=== PATIENT | female | born 1990 | race Caucasian/White ===

== ENCOUNTER → 2020-11-01 11:12 | Outpatient (BNVA) | payer OTHER, SELFPAY | PROVIDERS: PCP Internal Medicine; Visit Provider Advanced Practice Midwife ==

== ENCOUNTER 2021-01-25 09:31 | Outpatient (REF) | payer OTHER, SELFPAY ==
[2021-01-26 01:26] LABS: CT PCR NOT DETECTED (Not Detect.); NG PCR NOT DETECTED (Not Detect.)
== END 2021-01-25 09:32 | disposition home or self-care (01) ==
LOC: HO.LAB 09:31
PROVIDERS: Visit Provider Advanced Practice Midwife
DX: Z01.419 Encounter for gynecological examination (general) (routine) without abnormal findings (principal); Z20.2 Contact with and (suspected) exposure to infections with a predominantly sexual mode of transmission
CPT/HCPCS: 87491; 87591

== ENCOUNTER 2022-02-01 10:39 | Outpatient (REF) | payer OTHER, SELFPAY ==
[2022-02-01 16:01] LABS: CT PCR NOT DETECTED (Not Detect.); NG PCR NOT DETECTED (Not Detect.)
== END 2022-02-01 10:40 | disposition home or self-care (01) ==
LOC: HO.LNP 10:39
PROVIDERS: Visit Provider Advanced Practice Midwife
DX: Z11.3 Encounter for screening for infections with a predominantly sexual mode of transmission (principal); Z20.2 Contact with and (suspected) exposure to infections with a predominantly sexual mode of transmission
CPT/HCPCS: 87491; 87591

== ENCOUNTER 2022-04-27 21:09 | Emergency (ER) | payer OTHER, SELFPAY ==
[2022-04-27 21:29] VITALS: BP 149/87; PULSE 90; RESP 18; TEMP 36.9; O2SAT 100; BMI 43.4
[2022-04-27 22:16] LABS: IDNOW Serial# 08D9AD1C; Strep A Nucleic Acid Negative (Negative)
[2022-04-27 22:26] LABS: Influenza A PCR NEGATIVE (Negative); Influenza B PCR NEGATIVE (Negative); Resp Syncy Virus RNA Qual PCR NEGATIVE (Negative); SARS COV2 PCR INHOUSE NEGATIVE (Negative)
--- NOTE | 2022-04-27 22:51 | ED.GENADULT ---
HPI - General Adult General Chief complaint: General Medical Stated complaint: sore throat ,ear ache Time Seen by Provider: 04/27/22 22:45 Source: patient Mode of arrival: ambulatory Limitations: no limitations History of Present Illness HPI narrative: Patient comes to the emergency room complaining of 2-3 days of right-sided ear pain, sore throat and nasal congestion. Patient states that over the last day she has gradually been getting worse better, however patient complaining of worsening ear pain again and complaining of throat pain. Patient denies ear discharge, no fever chills, no headache, no neck pain, no chest pain or shortness of breath. Related Data Previous Rx's Medication Instructions Recorded amoxicillin 500 mg-potassium 1 tab PO BID #19 tabs 04/27/22 clavulanate 125 mg tablet (Augmentin) ibuprofen 600 mg tablet 600 mg PO TID PRN fever or pain 04/27/22 #20 tabs Allergies Allergy/AdvReac Type Severity Reaction Status Date / Time walnut Allergy Severe ANAPHYLAXIS Verified 02/01/22 09:58 walnuts Allergy Unknown throat Uncoded 02/01/22 09:58 tightness, elbow pain Review of Systems Review of Systems: Constitutional : No Weight loss, No Fever, No Chills, No Night Sweats, No Fatigue, No Malaise ENT/Mouth : Complaining of nasal congestion, mild sore throat, right-sided fullness and sharp ear pain Eyes: No Eye Pain, No Swelling, No Redness, No Foreign Body, No Discharge, No Vision Changes Cardiovascular : No Chest Pain, No SOB, No Dyspnea on Exertion, No Orthopnea, No Edema, No Palpitations Respiratory : No Cough, No Sputum, No Wheezing, No Smoke Exposure, No Dyspnea Gastrointestinal : No Nausea, No Vomiting, No Diarrhea, No Constipation, No abdominal Pain, No Hematochezia, No Melena Genitourinary : no irregular bleeding, No Dysuria, No Urinary Frequency, No Hematuria, No Urinary Incontinence, No Urgency, No Flank Pain, No Urinary Flow Changes, No Hesitancy Musculoskeletal : No joint pain, No Myalgias, No Joint Swelling Skin : No Skin Lesions, No rash Neuro : No Weakness, No Numbness, No Paresthesias, No Loss of Consciousness, No Dizziness, No Headache Psych : No Anxiety/Panic, No Depression, No SI/HI/AH/VH, No Social Issues, Heme/Lymph: No Bruising, No Bleeding,No Lymphadenopathy Endocrine : No Polyuria, No Polydipsia, No Temperature Intolerance [facility] Past Medical History Medical History Ectopic Surgical History H/O cardiac radiofrequency ablation Hx of section Hx of cholecystectomy Social History Social History Alcohol intake: current Alcohol intake frequency: holidays/special occasions only Patient Tobacco Use Status: Current everyday Tobacco user e-Cigarette/Vaping Use: Currently Using Advance Directives: No Current occupational status: employed 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 Oriented X3. No acute distress. Eyes: Pupils equal, round and reactive to light. ENT: Pharynx normal. No exudates, no vesicles or abscess is visualized in oropharynx. Right ear canal erythematous and swollen, erythematous tympanic membrane. Left ear within normal limits Neck: Normal inspection. Neck supple. No lymph nodes noted. No crepitus CVS: Normal heart rate and rhythm. Pulses normal. Normal S1 and S2 Respiratory: No respiratory distress. Breath sounds normal. No Wheezing. No rales Abdomen: Soft and nontender. No rigidity. No distention. Skin: Skin warm and dry. Normal skin color. Normal skin turgor. Extremities: No lower extremity edema. No Lacerations. No Rash Neuro: Oriented X 3. No motor deficit. No sensory deficit. Moving all extremities. No slurred speech. CN 2 through 12 grossly intact Psych: calm, cooperative, normal affect Course Course Course Narrative: I discussed with the patient that on physical exam she has otitis media on the right side. Strep test negative, COVID RSV tests pending. Patient was provided with ibuprofen, p.o. Decadron and viscous lidocaine for symptomatic relief. Also, patient was given the 1st dose of Augmentin. Patient tested negative for COVID and influenza and RSV Medications Administered Discontinued Medications Generic Name Dose Route Start Last Admin Trade Name Billq PRN Reason Stop Dose Admin Amoxicillin/Clavulanate Potassium 875 mg 04/27/22 22:49 04/27/22 23:14 Amoxicillin/Potassium Clav 875 Mg Tablet PO 04/27/22 22:50 875 mg ONCE ONE Administration Dexamethasone Sodium Phosphate 6 mg 04/27/22 22:56 04/27/22 23:14 Dexamethasone Sod Phosphate 4 Mg/Ml Vial IVPUSH 04/27/22 22:57 6 mg ONCE ONE Administration Ibuprofen 600 mg 04/27/22 22:49 04/27/22 23:14 Ibuprofen 600 Mg Tablet PO 04/27/22 22:50 600 mg ONCE ONE Administration Lidocaine HCl 15 ml 04/27/22 22:56 04/27/22 23:14 Lidocaine Hcl Viscous 2 % 15 Ml Solution MUCOUS MEM 04/27/22 22:57 15 ml ONCE ONE Administration Medical Decision Making Differential Diagnosis Differential Diagnoses: The differential diagnosis associated with the presentation includes (Strep pharyngitis, viral pharyngitis, COVID, influenza, otitis, otalgia) Lab Data MDM Lab Attestation statement: I reviewed the patient's lab results. Labs: Lab Results 04/27/22 04/27/22 Range/Units 21:37 21:37 Influenza Type A (PCR) NEGATIVE (Negative) Influenza Type B (PCR) NEGATIVE (Negative) RSV RNA Qual (PCR) NEGATIVE (Negative) SARS-CoV-2 RNA (RT-PCR) NEGATIVE (Negative) S. pyogenes GrpA [facility] Negative (Negative) Prescription Management I considered prescription management with: Pain Medication Patient will be treated with NSAID, no narcotics at this time. Discharge Plan Discharge Clinical Impression: Otitis media, Acute viral pharyngitis Patient Disposition: Home, Self-Care Instructions: Ear Infection (ED) Additional Instructions: Please follow-up with your primary care physician tomorrow. If you have any worsening or new symptoms, please return to the emergency room or call 911 Prescriptions: New amoxicillin-pot clavulanate [Augmentin] 500-125 mg tablet 1 tab PO BID Qty: 19 0RF ibuprofen 600 mg tablet 600 mg PO TID PRN (Reason: fever or pain) Qty: 20 0RF
[2022-04-27] MEDS: Lidocaine HCl Viscous 2 % 15 ML SOLUTION MUCOUS MEM (23:14)
[2022-04-27] MEDS: dexAMETHasone sod phosphate 4 MG/ML VIAL 6 MG IVPUSH (23:14)
[2022-04-27] MEDS: Amoxicillin/Potassium Clav 875 MG TABLET PO (23:14)
[2022-04-27] MEDS: Ibuprofen 600 MG TABLET PO (23:14)
== END 2022-04-27 23:32 | disposition home or self-care (01) ==
PROVIDERS: Emergency Provider Emergency Medicine
DX: H66.91 Otitis media, unspecified, right ear (principal); J02.9 Acute pharyngitis, unspecified; H92.01 Otalgia, right ear; F17.210 Nicotine dependence, cigarettes, uncomplicated; Z71.6 Tobacco abuse counseling; Z20.822 Contact with and (suspected) exposure to COVID-19
CPT/HCPCS: 0241U; 87651; 99283; J1100

== ENCOUNTER 2022-05-17 13:25 | Outpatient (REF) | payer OTHER, SELFPAY | END 2022-05-17 13:26 | disposition home or self-care (01) | LOC: HO.LNP 13:25 | PROVIDERS: Visit Provider Obstetrics & Gynecology | DX: N75.0 Cyst of Bartholin's gland (principal) | CPT/HCPCS: 56420; 87070; 87205 ==

== ENCOUNTER 2022-06-11 09:30 | Emergency (ER) | payer OTHER, SELFPAY ==
--- NOTE | 2022-06-11 09:35 | ECG_ITS ---
Test Reason : Chest Pain Blood Pressure : / mmHG Vent. Rate : 096 BPM Atrial Rate : 096 BPM P-R Int : 160 ms QRS Dur : 086 ms QT Int : 348 ms P-R-T Axes : 061 049 028 degrees QTc Int : 439 ms Sinus rhythm with marked sinus arrhythmia Otherwise normal ECG When compared with ECG of 29-NOV-2019 01:39, Vent. rate has increased BY 32 BPM Referred By: Steffi Butler Electronically Signed By:Loc Bo
[2022-06-11 09:42] VITALS: BP 154/74; PULSE 80; RESP 17; O2SAT 99; BMI 45.3
--- NOTE | 2022-06-11 10:02 | PC.NURSE ---
A+O X4, VSS, PT REPORTS SHARP PAIN FROM R ARM TO SHOULDER TO CHEST SINCE YESTERDAY. HX OF AVRT, ABLASION 2019, CHRONIC FLUTTERS. SHE DESCRIBES THE PAIN 7/10 DISCOMFORT POSSIBLY R/T NERVES AND ANXIETY . DENIES BLURRY VISION/SCHUSTER. NO CHANGE IN PO INTAKE/BOWEL PATTERN, LAST BM THIS MORNING.
--- NOTE | 2022-06-11 10:04 | ED_ITS ---
HPI - Chest Pain General Chief Complaint: Chest Pain Stated Complaint: Chest pain Time Seen by Provider: 06/11/22 09:35 Source: patient Mode of arrival: ambulatory History of Present Illness HPI narrative: 32-year-old female with presentation for chest discomfort but unable to further characterize and stating that she has been feeling a little anxious and has some ongoing concerns regarding her recent diagnosis of genital herpes for which she has a follow-up appoint with Dr. Cheng this week. Otherwise, she denies any fevers or chills but patient does report a history of SVT in the past for which she underwent ablation and has a follow-up appointment on Monday 06/19 for evaluation by her primary care provider for referral back to Cardiology. Related Data Previous Rx's Medication Instructions Recorded ibuprofen 600 mg tablet 600 mg PO TID PRN fever or pain 04/27/22 #20 tabs ondansetron HCl 4 mg tablet 8 mg PO Q8H PRN nausea and 06/11/22 vomiting 5 days #14 tabs oseltamivir 75 mg capsule (Tamiflu) 75 mg PO Q12H 5 days #10 caps 06/11/22 Allergies Allergy/AdvReac Type Severity Reaction Status Date / Time walnut Allergy Severe ANAPHYLAXIS Verified 05/17/22 13:34 walnuts Allergy Unknown throat Uncoded 05/17/22 13:34 tightness, elbow pain Review of Systems Review of Systems: Pertinent positives and negatives as stated in HPI [facility] Past Medical History Source: nursing notes reviewed Medical History Ectopic Surgical History H/O cardiac radiofrequency ablation Hx of section Hx of cholecystectomy Social History Social History Alcohol intake: current Alcohol intake frequency: holidays/special occasions only Patient Tobacco Use Status: Current everyday Tobacco user e-Cigarette/Vaping Use: Currently Using Advance Directives: No Advance Directives Information Provided: No Current occupational status: employed 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 GENERAL: Well developed, well nourished, appears anxious HEAD: Normocephalic/atraumatic EYES: PERRLA, EOMI EARS: Ext canals without abnormality, TMs non-bulging and non-erythematous NOSE: Nares patent bilateral OROPHARYNX: no oral lesions noted, posterior pharynx clear and non-erythematous without noted tonsillar enlargement/erythema/exudates NECK: Supple, no adenopathy LUNGS: Normal breath sounds. No adventitious sounds or accessory muscle use. SpO2<98> CARDIOVASCULAR: Regular rate and rhythm without noted murmurs, no JVD or lower extremity edema. ABDOMEN: Soft, non-tender, non-distended with bowel sounds. MUSCULOSKELETAL: No tenderness, deformities, or effusions noted on gross inspection. EXTREMITIES: No cyanosis, clubbing or edema. SKIN: Inspection of the skin reveals no rashes NEUROLOGIC: Alert and oriented x 4. Strength and sensation to light touch were grossly intact x 4. Medical Decision Making Medical Decision Making [facility] Narrative: 32-year-old female with suspected viral illness but also noted to have a heart rate fluctuating between 80s-90s and 140s-160s but also appears very anxious. On review of entire investigations my interpretation is that patient likely has chest discomfort as well as fluctuating heart rate secondary to underlying influenza positivity. Patient will receive Tylenol, ibuprofen, 25 mg of hydroxyzine. I did discuss this case with cardiology in regards to using a low dose beta sung as needed but as patient has been diagnosed with a viral infection will hold off on providing a prescription for that medication at this time and instead start her on the Tamiflu since she is within the window. Differential Diagnosis Differential Diagnoses: The differential diagnosis associated with the presentation includes Please see the discussion above Consult Healthcare Provider Management of the patient was discussed with: Control Director 1038: I discussed with retail representative who agrees with a low-dose beta-sung as long as patient does not have evidence of infection, anemia, abnormal TSH. 1159: I updated Cardiology that patient was in fact positive for influenza in so will hold off on the beta sung prescription at this time. Lab Data [facility] Lab Attestation statement: I reviewed the patient's lab results. Please see the discussion above 06/11/22 10:42 06/11/22 10:42 Labs: Lab Results 06/11/22 06/11/22 06/11/22 Range/Units 10:21 10:21 10:37 WBC (4.8-10.8) X10*3/uL RBC (4.20-5.50) X10*6/uL Hgb (12.0-16.0) g/dl Hct (37.0-47.0) % MCV (80.0-98.0) fL MCH (27.0-33.0) pg MCHC (31.0-35.0) g/dl RDW (11.0-16.0) % Plt Count (160-400) X10*3/uL MPV (9.4-12.3) fL Immature Gran % (Auto) (0.0-0.4) % Neut % (Auto) (45-73) % Lymph % (Auto) (20-40) % [place]duff[place] % (Auto) (2-11) % Eos % (Auto) (0-4) % Baso % (Auto) (0-2) % Lymph # (Auto) (1.2-4.9) X10*3/uL [place] # (Auto) (0.1-1.2) X10*3/uL Eos # (Auto) (0.0-0.4) X10*3/uL Baso # (Auto) (0.0-0.2) X10*3/uL Abs Immat Gran (auto) (0.00-0.03) X10*3/uL Absolute Neuts (auto) (2.0-8.3) x10*3/uL Absolute Nucleated RBC (0.0-0.012) X10*3/uL Nucleated RBC % (auto) (0.0-0.2) /100WBC Sodium (135-145) mmol/L Potassium (3.3-5.1) mmol/L Chloride (96-108) mmol/L Carbon Dioxide (22-29) mmol/L Anion Gap (12-20) BUN (9-16) mg/dL Creatinine (0.5-1.4) mg/dL Estim Creat Clear Calc Estimated GFR Random Glucose (60-115) mg/dL Calcium (8.4-10.2) mg/dL Total Bilirubin (0.0-1.0) mg/dL AST (5-31) U/L ALT (0-31) U/L Alkaline Phosphatase (39-117) U/L Total Protein (6.5-8.0) g/dL Albumin (3.5-5.0) g/dL TSH (0.32-4.0) uIU/mL Urine Color Yellow Urine Appearance Clear Urine pH 6.0 (5.0-9.0) Ur Specific [place] 1.015 (1.005-1.025) Urine Protein Negative (Neg-Trace) mg/dL Urine Glucose (UA) Negative (Negative) mg/dL Urine Ketones Trace (Negative) mg/dL Urine Blood Negative (Negative) Urine Nitrite Negative (Negative) Ur Leukocyte Esterase Negative (Negative) Urine Test (NEGATIVE) COVID-19 ([facility]) Negative (Negative) COVID-19 Clin Com See Note Influenza Type A ([facility]) Negative (Negative) Influenza Type B ([facility]) Positive A (Negative) Influenza A & B Note See Note 06/11/22 06/11/22 06/11/22 Range/Units 10:37 10:42 10:42 WBC 9.2 (4.8-10.8) X10*3/uL RBC 4.85 (4.20-5.50) X10*6/uL Hgb 14.3 (12.0-16.0) g/dl Hct 42.4 (37.0-47.0) % MCV 87.4 (80.0-98.0) fL MCH 29.5 (27.0-33.0) pg MCHC 33.7 (31.0-35.0) g/dl RDW 11.9 (11.0-16.0) % Plt Count 192 (160-400) X10*3/uL MPV 9.8 (9.4-12.3) fL Immature Gran % (Auto) 0.2 (0.0-0.4) % Neut % (Auto) 66.9 (45-73) % Lymph % (Auto) 21.7 (20-40) % [place]duff[place] % (Auto) 8.3 (2-11) % Eos % (Auto) 2.6 (0-4) % Baso % (Auto) 0.3 (0-2) % Lymph # (Auto) 2.0 (1.2-4.9) X10*3/uL [place] # (Auto) 0.8 (0.1-1.2) X10*3/uL Eos # (Auto) 0.2 (0.0-0.4) X10*3/uL Baso # (Auto) 0.0 (0.0-0.2) X10*3/uL Abs Immat Gran (auto) 0.02 (0.00-0.03) X10*3/uL Absolute Neuts (auto) 6.1 (2.0-8.3) x10*3/uL Absolute Nucleated RBC 0.000 (0.0-0.012) X10*3/uL Nucleated RBC % (auto) 0.0 (0.0-0.2) /100WBC Sodium 137 (135-145) mmol/L Potassium 4.1 (3.3-5.1) mmol/L Chloride 104 (96-108) mmol/L Carbon Dioxide 21 L (22-29) mmol/L Anion Gap 16 (12-20) BUN 13 (9-16) mg/dL Creatinine 0.77 (0.5-1.4) mg/dL Estim Creat Clear Calc 121.8 Estimated GFR > 60 Random Glucose 91 (60-115) mg/dL Calcium 9.5 (8.4-10.2) mg/dL Total Bilirubin 0.4 (0.0-1.0) mg/dL AST 22 (5-31) U/L ALT 15 (0-31) U/L Alkaline Phosphatase 56 (39-117) U/L Total Protein 7.9 (6.5-8.0) g/dL Albumin 4.8 (3.5-5.0) g/dL TSH 3.27 (0.32-4.0) uIU/mL Urine Color Urine Appearance Urine pH (5.0-9.0) Ur Specific [place] (1.005-1.025) Urine Protein (Neg-Trace) mg/dL Urine Glucose (UA) (Negative) mg/dL Urine Ketones (Negative) mg/dL Urine Blood (Negative) Urine Nitrite (Negative) Ur Leukocyte Esterase (Negative) Urine Test NEGATIVE (NEGATIVE) COVID-19 ([facility]) (Negative) COVID-19 Clin Com Influenza Type A ([facility]) (Negative) Influenza Type B ([facility]) (Negative) Influenza A & B Note Independent Interpretation I performed an independent interpretation of an: EKG Interpretation: Normal sinus rhythm, HR-96, no STEMI, MA/QRS/QTC is within normal limits. External Record Review External record reviewed: Outpatient record and Prior outpatient labs Critical Care Time Critical Care Time Critical Care Time: Yes Total Critical Care Time: 30 Attestation: I personally attest to this time spent taking care of the patient. Discharge Plan Discharge Clinical Impression: Viral syndrome, Influenza A Patient Disposition: Home, Self-Care Instructions: Influenza (ED), Viral Syndrome (ED) Additional Instructions: 1. Resume all home medications as prescribed. 2. Please complete the entire course of flu medication. 3. Please keep your appointment with Dr. Cheng as well as your primary care provider appointment on 06/19. Do not hesitate to return to the emergency room if you have any worsening of your symptoms. Prescriptions: New oseltamivir [Tamiflu] 75 mg capsule 75 mg PO Q12H 5 Days Qty: 10 0RF ondansetron HCl 4 mg tablet 8 mg PO Q8H PRN (Reason: nausea and vomiting) 5 Days Qty: 14 0RF No Action ibuprofen 600 mg tablet 600 mg PO TID PRN (Reason: fever or pain) Qty: 20 0RF Referrals: Kalyan Cheng MD [Physician] -
[2022-06-11 10:26] VITALS: BP 144/81; PULSE 89; RESP 23; O2SAT 98
[2022-06-11 10:47] LABS: MANUAL DIFF FLAG NO
[2022-06-11 10:48] LABS: Basophils Percent Auto 0.3 % (0-2); Eosinophils Absolute Auto 0.2 X10*3/uL (0.0-0.4); Eosinophils Percent Auto 2.6 % (0-4); Hematocrit 42.4 % (37.0-47.0); Hemoglobin 14.3 g/dl (12.0-16.0); Imm Gran Abs Auto 0.02 X10*3/uL (0.00-0.03); Imm Gran Pct Auto 0.2 % (0.0-0.4); Lymphocytes Percent Auto 21.7 % (20-40); Mean Corpuscular HGB Conc 33.7 g/dl (31.0-35.0); Mean Corpuscular Hemoglobin 29.5 pg (27.0-33.0); Mean Corpuscular Volume 87.4 fL (80.0-98.0); Mean Platelet Volume 9.8 fL (9.4-12.3); Monocytes Absolute Auto 0.8 X10*3/uL (0.1-1.2); Monocytes Percent Auto 8.3 % (2-11); Neutrophils Absolute Auto 6.1 x10*3/uL (2.0-8.3); Neutrophils Percent Auto 66.9 % (45-73); Platelet Count 192 X10*3/uL (160-400); Red Blood Count 4.85 X10*6/uL (4.20-5.50); Red Cell Distribution Width 11.9 % (11.0-16.0); White Blood Count 9.2 X10*3/uL (4.8-10.8)
[2022-06-11 10:50] LABS: Appearance Urine Clear; Color Urine Yellow; Glucose Urine UA Negative (Negative); Leukocyte Esterase Urine Negative (Negative); Nitrite Urine Negative (Negative); Specific Gravity - Urine 1.015 (1.005-1.025); Urine Blood Negative (Negative); Urine Ketones Trace mg/dL (Negative); Urine Protein Negative (Neg-Trace)
[2022-06-11 10:52] LABS: UPreg QC Valid YES; Urine Pregnancy NEGATIVE (NEGATIVE)
[2022-06-11 11:17] LABS: Alanine Aminotransferase 15 U/L (0-31); Albumin Level 4.8 g/dL (3.5-5.0); Alkaline Phosphatase 56 U/L (39-117); Anion Gap 16 (12-20); Aspartate Amino Transferase 22 U/L (5-31); Bilirubin Total 0.4 mg/dL (0.0-1.0); Blood Urea Nitrogen 13 mg/dL (9-16); Calcium 9.5 mg/dL (8.4-10.2); Carbon Dioxide 21 mmol/L (22-29); Chloride 104 mmol/L (96-108); Creatinine Clr Calc Pharmacy 121.8; Estimated Glomerular Filt Rate > 60; Glucose Random 91 mg/dL (60-115); Potassium 4.1 mmol/L (3.3-5.1); Sodium 137 mmol/L (135-145); Total Protein 7.9 g/dL (6.5-8.0)
[2022-06-11 11:24] LABS: IDNOW Serial# BCCEAD1C
[2022-06-11 11:25] LABS: COVID-19 Test Negative (Negative); IDNOW Serial# 16C4AD1C; Influenza A Negative (Negative); Influenza B2 Positive (Negative)
[2022-06-11 11:35] LABS: Thyroid Stimulating Hormone 3.27 uIU/mL (0.32-4.0)
[2022-06-11] MEDS: Acetaminophen 325 MG TABLET 975 MG PO (11:59)
[2022-06-11] MEDS: hydrOXYzine HCL 25 MG TABLET PO (11:59)
[2022-06-11] MEDS: Ibuprofen 400 MG TABLET PO (11:59)
[2022-06-11 12:00] VITALS: PULSE 84; RESP 13; O2SAT 99
== END 2022-06-11 12:24 | disposition home or self-care (01) ==
PROVIDERS: Emergency Provider Student in an Organized Health Care Education/Training Program
DX: J10.1 Influenza due to other identified influenza virus with other respiratory manifestations (principal); B34.9 Viral infection, unspecified; R07.89 Other chest pain; F17.210 Nicotine dependence, cigarettes, uncomplicated; Z71.6 Tobacco abuse counseling; Z20.822 Contact with and (suspected) exposure to COVID-19; Z20.828 Contact with and (suspected) exposure to other viral communicable diseases; Z79.899 Other long term (current) drug therapy
CPT/HCPCS: 36415; 80053; 81003; 81025; 84443; 85025; 87502; 87635; 93005; 99284

== ENCOUNTER 2022-06-13 08:35 | Outpatient (REF) | payer OTHER, SELFPAY | END 2022-06-13 08:36 | disposition home or self-care (01) | LOC: HO.LNP 08:35 | PROVIDERS: Visit Provider Advanced Practice Midwife | DX: N89.8 Other specified noninflammatory disorders of vagina (principal); L98.499 Non-pressure chronic ulcer of skin of other sites with unspecified severity; B00.9 Herpesviral infection, unspecified; Z20.828 Contact with and (suspected) exposure to other viral communicable diseases | CPT/HCPCS: 99212 ==

== ENCOUNTER 2022-06-13 09:04 | Outpatient (REF) | payer OTHER, SELFPAY ==
[2022-06-13 11:25] LABS: Syphilis Screen Nonreactive (Nonreactive)
[2022-06-13 13:42] LABS: CT PCR NOT DETECTED (Not Detect.); NG PCR NOT DETECTED (Not Detect.)
[2022-06-14 05:10] LABS: HBc Num1 0.08 S/CO (0.00-0.79); HIV AB/AG Nonreactive (Nonreactive); HIV Num 1 0.08 S/CO (0.00-0.99); Hepatitis B Core Antibody Nonreactive (Nonreactive); ~HepC Num1 0.14 S/CO (0.00-0.79); ~Hepatitis C Antibody Nonreactive (Nonreactive)
[2022-06-14 09:44] LABS: BV Int Neg Control Negative (Negative); BV Int Pos Control Positive (Positive)
== END 2022-06-13 09:05 | disposition home or self-care (01) ==
LOC: HO.LAB 09:04
PROVIDERS: Visit Provider Advanced Practice Midwife
DX: Z20.828 Contact with and (suspected) exposure to other viral communicable diseases (principal); Z20.2 Contact with and (suspected) exposure to infections with a predominantly sexual mode of transmission
CPT/HCPCS: 0353U; 86704; 86780; 86803; 87255; 87389; 87480; 87510; 87660

== ENCOUNTER → 2022-08-24 09:01 | Outpatient (BNVA) | payer OTHER, SELFPAY | PROVIDERS: Visit Provider Advanced Practice Midwife | DX: Z30.40 Encounter for surveillance of contraceptives, unspecified (principal) | CPT/HCPCS: 81025; 99212 ==

== ENCOUNTER 2022-09-29 09:46 | Emergency (ER) | payer OTHER, SELFPAY ==
--- NOTE | ~2022-09-29 | US_ITS ---
EXAMINATION: US PELVIS CLINICAL INFORMATION: Left lower quadrant pain, rule out ovarian cyst/torsion. COMPARISON: None available. TECHNIQUE: Ultrasound of the pelvis is performed using both transabdominal and transvaginal transducers along with Doppler. Transvaginal imaging is performed due to inadequate visualization transabdominally. FINDINGS: Uterus: The uterus is anteverted and mildly retroflexed and measures 8.3 x 4.0 x 4.9 cm. Small to mural fibroid on the left body measures 1.0 x 0.9 x 0.8 cm. The cervix is closed without abnormality measuring up to 3.3 cm. Mild free fluid in the cul-de-sac. The double wall endometrial thickness is 0.6 cm. Right ovary suboptimally visualized. Left ovary measures 3.8 x 2.6 x 2.9 cm. Volume 14.8 mL. An anechoic follicle measures up to 2.5 cm. Color Doppler showed no abnormal vascular flow. Urinary bladder mildly distended without focal abnormality. US/US pelvic and transvaginal IMPRESSION: 1. Left ovary is within normal limits without significant abnormality. 2. Small uterine fibroid without other significant abnormality. 3. Mild free fluid in the cul-de-sac is likely physiologic.
--- NOTE | ~2022-09-29 | US_ITS ---
EXAMINATION: US PELVIS CLINICAL INFORMATION: Left lower quadrant pain, rule out ovarian cyst/torsion. COMPARISON: None available. TECHNIQUE: Ultrasound of the pelvis is performed using both transabdominal and transvaginal transducers along with Doppler. Transvaginal imaging is performed due to inadequate visualization transabdominally. FINDINGS: Uterus: The uterus is anteverted and mildly retroflexed and measures 8.3 x 4.0 x 4.9 cm. Small to mural fibroid on the left body measures 1.0 x 0.9 x 0.8 cm. The cervix is closed without abnormality measuring up to 3.3 cm. Mild free fluid in the cul-de-sac. The double wall endometrial thickness is 0.6 cm. Right ovary suboptimally visualized. Left ovary measures 3.8 x 2.6 x 2.9 cm. Volume 14.8 mL. An anechoic follicle measures up to 2.5 cm. Color Doppler showed no abnormal vascular flow. Urinary bladder mildly distended without focal abnormality. US/US pelvic ovarian doppler IMPRESSION: 1. Left ovary is within normal limits without significant abnormality. 2. Small uterine fibroid without other significant abnormality. 3. Mild free fluid in the cul-de-sac is likely physiologic.
--- NOTE | ~2022-09-29 | US_ITS ---
EXAMINATION: US RENAL LEFT CLINICAL INFORMATION: Left flank pain, rule out hydronephrosis. COMPARISON: CT scan of the abdomen and pelvis dated 05/17/2013. TECHNIQUE: Linear transducer grayscale and color Doppler examination of the left kidney was performed. FINDINGS: LEFT KIDNEY: 11.2 x 5.7 x 5.3 cm. No nephrolithiasis or hydronephrosis. Color Doppler showed no abnormal vascular flow. US/US renal LT IMPRESSION: Unremarkable left kidney. No hydronephrosis.
[2022-09-29 09:50] VITALS: BP 155/85; PULSE 88; RESP 18; TEMP 36.6; O2SAT 98; BMI 45.3
--- NOTE | 2022-09-29 09:58 | ED.FEMALEGU ---
HPI - Female Genitourinary General Chief complaint: Urogenital-Female Stated complaint: L Lower Side Pain Time Seen by Provider: 09/29/22 09:57 Source: patient Mode of arrival: ambulatory Limitations: no limitations History of Present Illness HPI Narrative: 32-year-old female who presents emergency department for evaluation of left lower quadrant and left flank the. Patient states that the pain started on Sunday, 09/27/2022-2 days prior to evaluation. States the pain came on gradually and has been constant since onset. She describes the pain is a moderate, a cramping, dull pain similar to her menstrual cramps. She denied fever, chills, nausea, vomiting, diarrhea. She denied frequency, urgency or dysuria. She states that she did notice a unusual odor to her urine. She denied vaginal discharge. The patient does take control pills. She states she did have a home test which was positive but then negative last week. She states she did have an ectopic in the past and at that time she did have an IUD. Related Data Previous Rx's Medication Instructions Recorded acyclovir 5 % topical ointment 1 appl topical 6XD PRN prn 7 days 06/13/22 (Zovirax) #30 grams valacyclovir 1 gram tablet 1,000 mg PO BID 10 days #20 tabs 06/13/22 (Valtrex) desogestrel 0.15 mg-ethinyl 1 tab PO DAILY #28 tabs 08/24/22 estradiol 0.03 mg tablet (Apri) Allergies Allergy/AdvReac Type Severity Reaction Status Date / Time walnut Allergy Severe ANAPHYLAXIS Verified 09/29/22 09:49 walnuts Allergy Unknown throat Uncoded 06/13/22 08:45 tightness, elbow pain Review of Systems Review of Systems: Yes all other systems are reviewed and are negative [facility] Past Medical History [facility] Narrative: Past medical history: SVT with ablation, ectopic . Past surgical history: Cholecystectomy, , cardiac ablation. Social history: She denies tobacco use. She occasionally drinks alcohol. She occasionally smokes marijuana. 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 Sexual orientation: Straight/Heterosexual Gender identity: Female Physical Exam Vital Signs: Vital Signs: Last Vital Signs Temp 98 F 09/29/22 09:50 Pulse 79 09/29/22 12:05 Resp 18 09/29/22 12:05 BP 129/77 09/29/22 12:05 Pulse Ox 97 09/29/22 12:05 O2 Del Method Room Air 09/29/22 12:05 BMI result Body Mass Index 45.3 Const: Other: Awake, alert, female patient, very pleasant cooperative, does not appear to be in distress, answers all questions appropriately , elevated BMI 45.3 HEENT: Head: Yes normal to inspection, Yes normocephalic and Yes atraumatic Ears: external ears normal General nose exam: Normal external nose present Face and sinus: Yes normal facial exam Mouth: Normal oral and palatal mucosa present Throat: Yes posterior oropharynx normal Eyes: General: appearance normal, both eyes and all related structures Pupils: Equal, round and reactive pupils present Neck: Neck: Yes normal visual inspection, Yes no lymphadenopathy, Yes trachea midline and Yes supple Chest: Chest palpation & inspection: normal inspection of the chest and normal palpation of entire chest wall Resp: Effort & Inspection: normal respiratory effort and able to speak in complete sentences Auscultation: clear to auscultation bilaterally Cardio: Rate: regular rate Rhythm: regular rhythm Heart sounds: S1 normal heart sound present, S2 normal heart sound present and no murmurs GI: Inspection: Yes normal to inspection Palpation (GI): Soft to palpation, Tenderness to palpation present (GI) in the LLQ (Mild) and no guarding Auscultation: normal bowel sounds : General: Yes no CVA tenderness Back/Spine/Pelvis: Back: no CVA tenderness Skin: General skin exam: no rashes or lesions noted Neuro: Cranial nerves: Yes CN's II-XII intact bilaterally and Yes Equal, round and reactive pupils present Cognition (Neuro): normal cognition Motor exam (neuro): 5/5 motor strength present throughout Extrem: General: Yes normal to inspection Psych: Appearance: grossly normal Speech and movement: Normal speech and movement present Affect: normal affect Thought content: Normal thought content present Medical Decision Making Medical Decision Making [facility] Narrative: 32-year-old female who presents emergency department for evaluation of 2 days of left lower quadrant/pelvic and left flank cramping pain which came on gradually but has been constant since onset. Patient states she did have a positive home test last week but then repeated it and it was negative. She does have a history of ectopic and is taking control pills. Vital signs revealed an elevated blood pressure of 155/85. Physical examination did reveal mild left lower quadrant/pelvic tenderness. I did order laboratory evaluation includes CBC, CMP, lipase, quantitative beta-hCG, urinalysis. 1114: My interpretation of patient's laboratory evaluation is as follows: Anemia H&H of 12.2 and 36.2-chronic, normal MCV. CMP normal. Lipase normal. Quantitative beta-hCG below detectable limits. Urinalysis was negative. Given the unremarkable laboratory evaluation, I am still concerned that the patient may have ovarian cyst, torsion or kidney stone therefore I order an left renal ultrasound and left pelvic ultrasound, transvaginal ultrasound and duplex ultrasound. 1300: The patient's ultrasound of her left kidney and pelvic duplex ultrasound were normal, there was no ovarian cyst, ovarian torsion or hydronephrosis. At this time I do not have a clear etiology for the patient's pain I did discuss this with her. She was advised to take ibuprofen and Tylenol for pain. I did advisor she develops a rash then she should be evaluated for shingles. Patient was given printed and verbal instructions and discharged home. Differential Diagnosis Differential diagnosis includes was not limited to urinary tract infection, pyelonephritis, ectopic , ovarian cyst Admission/Observation Consideration of admission/observation: Escalation of care including admission/observation considered Lab Data [facility] Lab Attestation statement: I reviewed the patient's lab results. 09/29/22 10:29 09/29/22 10:29 Labs: Lab Results 09/29/22 09/29/22 09/29/22 Range/Units 10:25 10:29 10:29 WBC 6.3 (4.8-10.8) X10*3/uL RBC 4.08 L (4.20-5.50) X10*6/uL Hgb 12.2 (12.0-16.0) g/dl Hct 36.2 L (37.0-47.0) % MCV 88.7 (80.0-98.0) fL MCH 29.9 (27.0-33.0) pg MCHC 33.7 (31.0-35.0) g/dl RDW 11.6 (11.0-16.0) % Plt Count 202 (160-400) X10*3/uL MPV 9.7 (9.4-12.3) fL Immature Gran % (Auto) 0.3 (0.0-0.4) % Neut % (Auto) 66.0 (45-73) % Lymph % (Auto) 24.4 (20-40) % Ector % (Auto) 6.4 (2-11) % Eos % (Auto) 2.4 (0-4) % Baso % (Auto) 0.5 (0-2) % Lymph # (Auto) 1.5 (1.2-4.9) X10*3/uL Ector # (Auto) 0.4 (0.1-1.2) X10*3/uL Eos # (Auto) 0.2 (0.0-0.4) X10*3/uL Baso # (Auto) 0.0 (0.0-0.2) X10*3/uL Abs Immat Gran (auto) 0.02 (0.00-0.03) X10*3/uL Absolute Neuts (auto) 4.1 (2.0-8.3) x10*3/uL Absolute Nucleated RBC 0.000 (0.0-0.012) X10*3/uL Nucleated RBC % (auto) 0.0 (0.0-0.2) /100WBC Sodium 140 (135-145) mmol/L Potassium 4.5 (3.3-5.1) mmol/L Chloride 109 H (96-108) mmol/L Carbon Dioxide 25 (22-29) mmol/L Anion Gap 11 L (12-20) BUN 10 (9-16) mg/dL Creatinine 0.81 (0.5-1.4) mg/dL Estim Creat Clear Calc 115.8 Estimated GFR > 60 Random Glucose 103 (60-115) mg/dL Calcium 9.0 (8.4-10.2) mg/dL Total Bilirubin 0.3 (0.0-1.0) mg/dL AST 12 (5-31) U/L ALT 8 (0-31) U/L Alkaline Phosphatase 34 L (39-117) U/L Total Protein 6.4 L (6.5-8.0) g/dL Albumin 3.8 (3.5-5.0) g/dL Lipase 28 (8-78) U/L Beta HCG, Quant < 2 mIU/mL Urine Color Yellow Urine Appearance Clear Urine pH 7.0 (5.0-9.0) Ur Specific [place] 1.020 (1.005-1.025) Urine Protein Negative (Neg-Trace) mg/dL Urine Glucose (UA) Negative (Negative) mg/dL Urine Ketones Negative (Negative) mg/dL Urine Blood Negative (Negative) Urine Nitrite Negative (Negative) Ur Leukocyte Esterase Negative (Negative) Radiology Impression Discussion of test interpretation with radiology: I have reviewed the radiologist's reading. Radiologist Impression: US renal LT IMPRESSION: Unremarkable left kidney. No hydronephrosis. Dictated By:Ricci Lindo MD US pelvic and transvaginal IMPRESSION: 1. Left ovary is within normal limits without significant abnormality. 2. Small uterine fibroid without other significant abnormality. 3. Mild free fluid in the cul-de-sac is likely physiologic. Dictated By:Ricci Lindo MD Discharge Plan Discharge Clinical Impression: Left flank pain, Abdominal pain Patient Disposition: Home, Self-Care Additional Instructions: Your blood work was normal. Your urine test was unremarkable. Your blood test was negative. The ultrasound of your kidney was normal. The ultrasound your ovaries revealed normal blood flow with no evidence of twisting/torsion and no ovarian cyst. At this time I do not have a clear etiology for your pain. If you developed a rash on the left side of your body in the area of your pain then you should be re-evaluated for shingles and this sooner that you start anti shingle medicines the better. Take ibuprofen 200 mg pills, 32 pills every 6 hours as needed for pain. Take Tylenol (acetaminophen) 500 mg pills, 2 pills every 6 hours as needed for pain. Follow-up with your doctor in 2 days. Please return to the emergency department if your symptoms get worse or if you develop any symptoms that are concerning to you. Prescriptions: No Action valacyclovir [Valtrex] 1 gram tablet 1,000 mg PO BID 10 Days Qty: 20 0RF acyclovir [Zovirax] 5 % ointment 1 appl topical 6XD PRN (Reason: prn) 7 Days Qty: 30 2RF desogestrel-ethinyl estradiol [Apri] 0.15-0.03 mg tablet 1 tab PO DAILY Qty: 28 5RF
[2022-09-29 10:34] LABS: MANUAL DIFF FLAG NO
[2022-09-29 10:36] LABS: Basophils Percent Auto 0.5 % (0-2); Eosinophils Absolute Auto 0.2 X10*3/uL (0.0-0.4); Eosinophils Percent Auto 2.4 % (0-4); Hematocrit 36.2 % (37.0-47.0); Hemoglobin 12.2 g/dl (12.0-16.0); Imm Gran Abs Auto 0.02 X10*3/uL (0.00-0.03); Imm Gran Pct Auto 0.3 % (0.0-0.4); Lymphocytes Absolute Auto 1.5 X10*3/uL (1.2-4.9); Lymphocytes Percent Auto 24.4 % (20-40); Mean Corpuscular HGB Conc 33.7 g/dl (31.0-35.0); Mean Corpuscular Hemoglobin 29.9 pg (27.0-33.0); Mean Corpuscular Volume 88.7 fL (80.0-98.0); Mean Platelet Volume 9.7 fL (9.4-12.3); Monocytes Absolute Auto 0.4 X10*3/uL (0.1-1.2); Monocytes Percent Auto 6.4 % (2-11); Neutrophils Absolute Auto 4.1 x10*3/uL (2.0-8.3); Platelet Count 202 X10*3/uL (160-400); Red Blood Count 4.08 X10*6/uL (4.20-5.50); Red Cell Distribution Width 11.6 % (11.0-16.0); White Blood Count 6.3 X10*3/uL (4.8-10.8)
[2022-09-29 10:37] LABS: Appearance Urine Clear; Color Urine Yellow; Glucose Urine UA Negative (Negative); Leukocyte Esterase Urine Negative (Negative); Nitrite Urine Negative (Negative); Urine Blood Negative (Negative); Urine Ketones Negative (Negative); Urine Protein Negative (Neg-Trace)
[2022-09-29 11:00] LABS: Alanine Aminotransferase 8 U/L (0-31); Albumin Level 3.8 g/dL (3.5-5.0); Alkaline Phosphatase 34 U/L (39-117); Anion Gap 11 (12-20); Aspartate Amino Transferase 12 U/L (5-31); Bilirubin Total 0.3 mg/dL (0.0-1.0); Blood Urea Nitrogen 10 mg/dL (9-16); Carbon Dioxide 25 mmol/L (22-29); Chloride 109 mmol/L (96-108); Creatinine Clr Calc Pharmacy 115.8; Estimated Glomerular Filt Rate > 60; Glucose Random 103 mg/dL (60-115); HCG Quantitative < 2 mIU/mL; Lipase 28 U/L (8-78); Potassium 4.5 mmol/L (3.3-5.1); Sodium 140 mmol/L (135-145); Total Protein 6.4 g/dL (6.5-8.0)
--- NOTE | 2022-09-29 11:28 | PC.NURSE ---
pt off unit to go to U/[facility]
[2022-09-29 12:05] VITALS: BP 129/77; PULSE 79; RESP 18; O2SAT 97
== END 2022-09-29 16:41 | disposition home or self-care (01) ==
PROVIDERS: Emergency Provider Emergency Medicine Emergency Medical Services
DX: R10.32 Left lower quadrant pain (principal); R10.2 Pelvic and perineal pain; F17.210 Nicotine dependence, cigarettes, uncomplicated; Z71.6 Tobacco abuse counseling; Z79.899 Other long term (current) drug therapy
CPT/HCPCS: 36415; 76775; 76830; 76856; 80053; 81003; 83690; 84702; 85025; 93975; 99284

== ENCOUNTER 2023-07-18 12:44 | Outpatient (REF) | payer OTHER, SELFPAY ==
[2023-07-18 17:21] LABS: CT PCR NOT DETECTED (Not Detect.); NG PCR NOT DETECTED (Not Detect.)
[2023-07-25 12:49] LABS: HPV mRNA E6/E7 rflx Not Detected (Not Detected)
== END 2023-07-18 12:45 | disposition home or self-care (01) ==
LOC: HO.LNP 12:44
PROVIDERS: Visit Provider Advanced Practice Midwife
DX: Z01.419 Encounter for gynecological examination (general) (routine) without abnormal findings (principal); Z20.2 Contact with and (suspected) exposure to infections with a predominantly sexual mode of transmission
CPT/HCPCS: 0353U; 87624; 88142; 99395

== ENCOUNTER 2023-07-18 12:44 | Outpatient (AMB) | payer OTHER, SELFPAY ==
--- NOTE | 2023-07-18 12:47 | MHC.OFFVIS ---
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 Doing well with no concerns. Interested in a ParaGard, Hx. of ectopic with the device. Not eating healthy, no exercise. Regular monthly menses. Currently is sexually active. She denies vaginal itching and irritation. STI screening offered; she accepts. Denies family history of breast, ovarian or colon cancer. Last pap smear 2019, negative. 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 Sexual orientation: Straight/Heterosexual Gender identity: Female Female Reproductive History Menstrual Age of Menarche: 13 Duration of menses: 3-5 days Date of last menstrual period: 07/12/23 control method: pills Total pregnancies: 2 Full term: 1 Number of Living Children: 1 Ectopics: 1 Date of last pap smear: 02/04/20 (neg) Review of Systems Const All systems reviewed & are unremarkable except as noted in HPI and below Reports as per HPI Eyes Reports no additional complaints ENT Reports no additional complaints Card Reports no additional complaints Resp Reports no additional complaints GI Reports as per HPI and Reports no additional complaints Reports as per HPI Musc Reports no additional complaints Skin/Breast Reports as per HPI Neuro Reports no additional complaints Psych Reports no additional complaints Endo Reports no additional complaints Spencer/Lymph Reports no additional complaints Aller/Immun Reports no additional complaints Physical Exam Vital Signs: Last Vital Signs BP 120/80 07/18/23 12:52 BMI result Body Mass Index 49.7 Const General: cooperative, healthy appearing, no acute distress, well developed and alert Orientation/consciousness: patient oriented x3 HEENT Head: Yes normal to inspection Eyes General: appearance normal, both eyes and all related structures Neck Neck: Yes normal visual inspection Thyroid: Thyroid normal Chest Chest palpation & inspection: normal inspection of the chest and other (no puckering, dimpling, peau de orange, retraction, discharge, masses) Breast/axilla inspection: normal inspection of the breasts Breast/axilla palpation: normal palpation of the breasts Resp Effort & Inspection: normal respiratory effort GI Inspection: Yes normal to inspection Palpation (GI): Soft to palpation Rectal Exam - Female: deferred General: Yes bladder normal to palpation External Female Exam: normal external appearance and normal appearance of the urethra Speculum Exam - Vagina: normal appearance of the vagina, normal palpation and normal vaginal discharge Speculum Exam - Cervix: normal appearance of the cervix and normal palpation Bimanual exam- vagina & uterus: normal bimanual exam, normal palpation, uterine size normal, bladder normal to palpation, normal palpation and non-tender Bimanual Exam- Adnexa, other: no masses Skin General skin exam: no rashes or lesions noted Rashes: no rashes Neuro General: patient oriented x3 Cognition (Neuro): normal cognition Extrem General: Yes normal to inspection Psych Attitude: cooperative Thought process: Normal thought process present Assessment & Plan Assessment & Plan (1) Encounter for well woman exam with routine gynecological exam: Code(s): Z01.419 - Encounter for gynecological examination (general) (routine) without abnormal findings Plan Discussed: Current recommendations for pap smears per ASCCP guidelines. Breast awareness and periodic breast exams. Maintain a healthy lifestyle including a well balanced diet and routine exercise. Use condoms for STI and prevention. Discussed BC options: various IUD types, booklets given. Call when decided her choice. If planning a IUD, call in the firt 5d of menses. Use of OTC meds pre-procedure with food/fluids. Patient verbalizes understanding and agrees to the plan of care. She was given opportunity to ask questions and all questions were answered to the best of my ability. RTO in one year for annual community administrator examination. This note is constructed using voice recognition software. While every effort has been made to ensure accuracy, surveyor hydrographic errors may have been included. Orders: Orders Pap Smear Today Z01.419 - Encounter for gynecological examination (general) (routine) without abnormal findings CT NG by PCR Today Z20.2 - Contact with and (suspected) exposure to infections with a predominantly sexual mode of transmission Coding Level of Care Code Est Pt Prev Care 18-39y(99888) Diagnoses Encounter for well woman exam with routine gynecological exam Z01.419
[2023-07-18 12:52] VITALS: BP 120/80; BMI 49.7
== END 2023-07-18 13:41 | disposition home or self-care (01) ==
LOC: HO.HWS 12:45
PROVIDERS: Visit Provider Advanced Practice Midwife
DX: Z01.419 Encounter for gynecological examination (general) (routine) without abnormal findings (principal)
CPT/HCPCS: 99395

== ENCOUNTER 2023-08-13 14:01 | Emergency (ER) | payer OTHER, SELFPAY ==
--- NOTE | ~2023-08-13 | XR_ITS ---
EXAMINATION: XR FINGER, LEFT CLINICAL INFORMATION: Lingular spring shoulder on the thumb. Pain. COMPARISON: None available. TECHNIQUE: 3 views of the left thumb.. FINDINGS: The bones and soft tissues are normal. No fracture. Alignment is anatomic. Joint spaces are maintained. XR/XR finger LT min 2V IMPRESSION: Unremarkable first digit. No visible acute fracture or dislocation seen.
[2023-08-13 14:10] VITALS: BP 140/88; PULSE 105; O2SAT 98
[2023-08-13 14:21] VITALS: BP 152/92; PULSE 88; RESP 20; TEMP 36.6; O2SAT 100; BMI 45.3
--- NOTE | 2023-08-13 14:21 | ED_ITS ---
HPI - General Adult General Chief complaint: Skin/Abscess/Foreign Body Stated complaint: left thumb inj Time Seen by Provider: 08/13/23 14:53 Source: patient, family (patient's ) and EMS Mode of arrival: EMS Limitations: no limitations History of Present Illness HPI narrative: Patient is a 33 year old assigned female at with no reported medical history presenting to the emergency department today with a left thumb injury. Patient states that she was cleaning her oven when the hinges of the oven door snapped and caught her left thumb. Patient states that the hinge went through her left thumb and required the fire department to come release her. Patient denies any dizziness, lightheadedness, abdominal pain, nausea, vomiting, fever, chills, blurry vision, double vision, loss of vision, chest pain, difficulty breathing, shortness of breath, back pain, night sweats, pain with urination, increased urinary frequency, increased urinary urgency, blood in her urine or stool, syncope or a near syncopal episode, bowel incontinence, bladder incontinence, bowel retention, bladder retention, or any other complaints at this time. Onset (ago): minute(s) Location: left (thumb) Severity: mild Severity scale (1-10): 4 Quality: aching Pain Consistency: constant Relieving factors: none Exacerbating factors: none Associated symptoms: denies other symptoms Treatments prior to arrival: none Related Data Previous Rx's Medication Instructions Recorded acyclovir 5 % topical ointment 1 appl topical 6XD PRN prn 7 days 06/13/22 (Zovirax) #30 grams valacyclovir 1 gram tablet 1,000 mg PO BID 10 days #20 tabs 06/13/22 (Valtrex) desogestrel 0.15 mg-ethinyl 1 tab PO DAILY #84 tabs 04/03/23 estradiol 0.03 mg tablet (Apri) cephalexin 500 mg capsule 500 mg PO Q6H 7 days #28 caps 08/13/23 Allergies Allergy/AdvReac Type Severity Reaction Status Date / Time walnut Allergy Severe ANAPHYLAXIS Verified 07/18/23 12:52 walnuts Allergy Unknown throat Uncoded 06/13/22 08:45 tightness, elbow pain Review of Systems 2 Constitutional: Constitutional: Reports no additional constitutional complaints, Denies chills, Denies fever(s) and Denies night sweats Eyes: Eyes: Reports no additional eye complaints, Denies blurry vision, Denies change in vision, Denies diplopia, Denies eye discharge, Denies loss of vision and Denies eye pain ENT: Denies dizziness Cardiovascular: Cardiovascular: Reports no additional cardiovascular complaints, Denies chest pain, Denies lightheadedness, Denies Loss of Consciousness and Denies dyspnea Respiratory: Respiratory: Reports no additional respiratory complaints and Denies dyspnea Gastrointestinal: Gastrointestinal: Reports no additional gastrointestinal complaints, Denies abdominal pain, Denies melena, Denies hematochezia, Denies change in bowel habits and Denies change in stool character Genitourinary: Genitourinary: Denies hematuria, Denies urinary frequency, Denies dysuria, Denies urinary incontinence, Denies urinary hesitancy and Denies urinary urgency Musculoskeletal: Musculoskeletal: Reports no additional musculoskeletal complaints, Denies numbness and Denies tingling Comments: left thumb injury Neurologic: Denies dizziness, Denies loss of vision, Denies numbness and Denies tingling Psychiatric: Psychiatric: Reports no additional psychiatric complaints Endocrine: Endocrine: Reports no additional endocrine complaints Hematologic/Lymphatic: Hematologic/Lymphatic: Reports no additional hematologic/lymphatic complaints Allergic/Immunologic: Allergic/Immunologic: Reports no additional allergic/immunologic complaints PMFSH Past Medical History Attestation statement: The following information was validated with the patient. (all information validated with the patient's ) Source: old records reviewed, obtained from family (patient's provided additional history and confirmed the history provided by the patient.) and nursing notes reviewed Medical History Ectopic Surgical History H/O cardiac radiofrequency ablation Hx of cholecystectomy Hx of section Social History Social History Alcohol intake: current Alcohol intake frequency: a few times a month Patient Tobacco Use Status: Current everyday Tobacco user e-Cigarette/Vaping Use: Currently Using Substance Use Type: Marijuana Advance Directives: No Advance Directives Information Provided: Yes Current occupational status: employed 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 Sexual orientation: Straight/Heterosexual Gender identity: Female Physical Exam ED Vital Signs: Vital Signs - 24 hr 08/13/23 14:21 Temperature 97.9 F Pulse Rate 88 Respiratory Rate 20 Blood Pressure 152/92 H Pulse Oximetry 100 Oxygen Delivery Method Room Air BMI result Body Mass Index 45.3 Const General: cooperative, no acute distress, alert and awake Nutritional Appearance: well nourished Orientation/consciousness: patient oriented x3 Limitations: no limitations HENMT Head: Yes normal to inspection and Yes atraumatic Ears: hearing grossly normal bilaterally and external ears normal General nose exam: Normal external nose present, no nasal discharge noted and no epistaxis Face and sinus: Yes normal facial exam, No abrasion and No laceration Mouth: Normal oral and palatal mucosa present, no drooling and no muffled voice Eyes General: appearance normal, both eyes and all related structures Periorbital: periorbital findings normal Eyelids: Yes eyelids normal Conjunctivae: conjunctivae normal Pupils: Equal, round and reactive pupils present EOM: EOMs intact bilaterally Neck Neck: Yes normal visual inspection, Yes full ROM and Yes no lymphadenopathy Chest Chest palpation & inspection: normal inspection of the chest Resp Effort & Inspection: normal respiratory effort and able to speak in complete sentences GI Inspection: Yes normal to inspection Neuro General: patient oriented x3 and moves all extremities Cranial nerves: Yes Equal, round and reactive pupils present Cognition (Neuro): normal cognition Motor exam (neuro): 5/5 motor strength present throughout Sensory Exam: Normal double simultaneous stimulation for sensation Coordination: [id number] test normal Extrem General: Yes full ROM and Yes capillary refill normal Hand/finger images: 2 1. laceration, no active bleeding Psych Appearance: grossly normal Mental Status: mental status grossly normal Affect: normal affect Attitude: cooperative Thought process: Normal thought process present Thought content: Normal thought content present Insight: Good insight present (Psych) Course Course Course Narrative: This is a rapid medical exam: Additional HPI, ROS, PE not included below will be deferred to primary provider. Patient is a 33-year-old right hand dominant female presenting to the ED with complaint of injury to left thumb. States she was cleaning her oven when the hinge closed shut on her left thumb. She is stating it went completely through her thumbnail. Bandage applied by EMS. Tdap is not UTD. V-shaped wound to ulnar side of thumb adjacent to nail, puncture wound to palmar surface of thumb, no active bleeding. Plan: x-ray, tdap Medications Administered Discontinued Medications Generic Name Dose Route Start Last Admin Trade Name Freq PRN Reason Stop Dose Admin Diphtheria/Tetanus/Acell Pertussis 0.5 ml 08/13/23 14:25 08/13/23 14:58 Diphth,Pertus(Acell),Tet Adult 0.5 Ml Syringe IM 08/13/23 14:26 0.5 ml .ONCE ONE Administration Procedures Laceration Laceration 1: Site: other (thumb) Side (If applicable): left Size (cm): 1 Description: other (V shaped) Depth: simple, single layer Pre-repair: wound explored, irrigated extensively and deep structures intact Skin layer closed with: other (dermabond) Size (cm): other (dermabond) Technique: other (dermabond) Medical Decision Making Medical Decision Making MDM Narrative: Patient is a 33 year old assigned female at with no reported medical history presenting to the emergency department today with a left thumb injury. Patient's physical exam was as noted in the physical exam portion of this note. Patient's left hand x-ray showed no acute process. I explained my physical exam findings as well as all test results to the patient and the patient's . I answered all questions asked by the patient and the patient's . We discussed sutures vs. dermabond for the left thumb wound, extensively. Together, it was decided dermabond would be a treatment plan for the patient. Dermabond was applied to the left thumb wound, without incident. Patient's PMS was intact prior to and after dermabond placement. I stressed the importance of the patient taking her medication as prescribed. I stressed the importance of the patient following up with her primary care provider. I stressed the importance of the patient returning to the emergency department immediately if her symptoms were to worsen or if she were to develop any dizziness, shortness of breath, difficulty breathing, chest pain, blurry vision, loss of vision, nausea, vomiting, abdominal pain, fever, chills, back pain, or any other complaints. Patient and the patient's verbalized agreement and understanding with this treatment plan and discharge. Differential Diagnosis Differential Diagnoses: The differential diagnosis associated with the presentation includes Left thumb laceration Left thumb injury Left thumb abrasion Admission/Observation Consideration of admission/observation: Escalation of care including admission/observation considered Patient would have been admitted to the hospital had her work up had any findings where hospital admission was appropriate and her clinical presentation warranted hospital admission. Independent Interpretation I performed an independent interpretation of an: Plain X-Ray Interpretation: My interpretation is in agreement with the radiologist's impression of this imaging study. - EXAMINATION: XR FINGER, LEFT CLINICAL INFORMATION: Lingular spring shoulder on the thumb. Pain. COMPARISON: None available. TECHNIQUE: 3 views of the left thumb.. FINDINGS: The bones and soft tissues are normal. No fracture. Alignment is anatomic. Joint spaces are maintained. XR/XR finger LT min 2V IMPRESSION: Unremarkable first digit. No visible acute fracture or dislocation seen. Dictated By: Gabino Givens MD Signed By: Electronically signed by Gabino Givens MD 08/13/23 1512 Radiology Impression Discussion of test interpretation with radiology: I have reviewed the radiologist's reading. Independent Historian Clinical information obtained from an independent historian. History obtained from or confirmed by: Spouse (patient's provided additional history and confirmed the history provided by the patient.) Discharge Plan Discharge Clinical Impression: Laceration of thumb Patient Disposition: Home, Self-Care Instructions: Laceration (DC), Skin Adhesive Care (ED) Additional Instructions: Do NOT get the affected area wet for at LEAST 7 days. Perform daily wound checks and dressing changes. Follow up with your primary care provider. Return to the emergency department immediately if your symptoms worsen or if you develop any dizziness, shortness of breath, difficulty breathing, chest pain, blurry vision, loss of vision, nausea, vomiting, abdominal pain, fever, chills, back pain, or any other complaints. Prescriptions: New cephalexin 500 mg capsule 500 mg PO Q6H 7 Days Qty: 28 0RF No Action desogestrel-ethinyl estradiol [Apri] 0.15-0.03 mg tablet 1 tab PO DAILY Qty: 84 1RF valacyclovir [Valtrex] 1 gram tablet 1,000 mg PO BID 10 Days Qty: 20 0RF acyclovir [Zovirax] 5 % ointment 1 appl topical 6XD PRN (Reason: prn) 7 Days Qty: 30 2RF Referrals: [facility] [place] Family Medicine [Provider Group] (Call to establish and follow up with a primary care provider. If you already have a primary care provider, please follow up with them.) [facility] [place] Primary Care, Jos[facility] [Provider Group] (Call to establish and follow up with a primary care provider. If you already have a primary care provider, please follow up with them.) [facility] [place] Primary [facility] [Provider Group] (Call to establish and follow up with a primary care provider. If you already have a primary care provider, please follow up with them.) Discharge Date/Time: 08/13/23 15:51 Print Language: Portuguese
[2023-08-13] MEDS: Diphth,Pertus(ACell),Tet Adult 0.5 ML SYRINGE IM (14:58)
--- NOTE | 2023-08-13 15:03 | PC.NURSE ---
Pt has 1cm lac on left thumb after having an oven door slam shut. Bleeding under control at this time. tetanus updated
== END 2023-08-13 15:51 | disposition home or self-care (01) ==
PROVIDERS: Emergency Provider Emergency Medicine
DX: S61.012A Laceration without foreign body of left thumb without damage to nail, initial encounter (principal); S60.312A Abrasion of left thumb, initial encounter; W26.9XXA Contact with unspecified sharp object(s), initial encounter; Y93.9 Activity, unspecified; Y92.000 Kitchen of unspecified non-institutional (private) residence as the place of occurrence of the external cause; Y99.8 Other external cause status; Z23 Encounter for immunization
CPT/HCPCS: 12041; 73140; 90471; 90715; 99284

== ENCOUNTER 2023-08-18 14:26 | Emergency (ER) | payer OTHER, SELFPAY ==
--- NOTE | 2023-08-18 14:45 | ED.UPPEXIN ---
HPI - Extremity Injury (Upper) General Chief Complaint: Extremity Injury, Upper Stated Complaint: Thumb injury Time Seen by Provider: 08/18/23 15:28 Source: patient Mode of arrival: ambulatory Limitations: no limitations History of Present Illness HPI narrative: 33 y/o right-handed female presents for increased purulent discharge since yesterday s/p left thumb laceration. She was seen on Saturday 08/12 for left thumb laceration- she was cleaning her oven when the hinges of the oven door snapped and caught her left thumb. Patient states that the hinge went through her left thumb and required the fire department to come release her. Laceration was tacted together with glue and she was started on keflex and instructed to return to ER if sx worsen- states there has been an increase in purulent discharge. Yesterday, she noticed her nailbed became swollen and developed nonodorus discharge from laceration, No fevers. No limitations to range of movement of L thumb or hand. MD complaint: injury to: left Onset (ago): day(s) Other Extremity Injury: left: fingers Other injuries: none Handedness: right Place: home Treatments prior to arrival: other (was prescribed keflex x 7 days) Related Data Previous Rx's ?Medication ?Instructions ?Recorded acyclovir 5 % topical ointment 1 appl topical 6XD PRN prn 7 days 06/13/22 (Zovirax) #30 grams valacyclovir 1 gram tablet 1,000 mg PO BID 10 days #20 tabs 06/13/22 (Valtrex) desogestrel 0.15 mg-ethinyl 1 tab PO DAILY #84 tabs 04/03/23 estradiol 0.03 mg tablet (Apri) cephalexin 500 mg capsule 500 mg PO Q6H 7 days #28 caps 08/13/23 Allergies Allergy/AdvReac Type Severity Reaction Status Date / Time walnut Allergy Severe ANAPHYLAXIS Verified 08/18/23 15:21 Review of Systems Review of Systems: Yes all other systems are reviewed and are negative PMFSH Past Medical History Medical History Ectopic Surgical History H/O cardiac radiofrequency ablation Hx of cholecystectomy Hx of section Social History Social History Alcohol intake: current Alcohol intake frequency: a few times a month Patient Tobacco Use Status: Current everyday Tobacco user e-Cigarette/Vaping Use: Currently Using Substance Use Type: Marijuana Advance Directives: No Advance Directives Information Provided: Yes Current occupational status: employed 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 Oriented X3. No acute distress. Head: normocephalic, atraumatic. Neck: Normal inspection. Neck supple. Skin: Skin warm and dry. Normal skin color. Normal skin turgor. No rashes. L thumb with penetrative wound with overlying granulamatosis tissue and moist discharge. Erythematous and swollen nailbed. Extremities: No lower extremity edema. No joint swelling. Neuro/psych: Oriented X 3. No acute deficits. Medical Decision Making Medical Decision Making MDM Narrative: 33 year old female presents today for increased purulent discharge and swelling of L thumb s/p L thumb laceration on 08/12. Wound was approximate with glue and she was discharged on Keflex. Yesterday, she noticed purulent discharge and increased swelling of the L thumb. Nonfebrile on presenting and has intact range of motion. Wound appears moist with moderate amount of granuloma tissue. There is erythema and swelling of the L thumb nailbed. Low clinical suspicion for abscess at this time. Presentation most likely secondary to complicated wound healing and potential paronchyia. Stable for discharge home. Instructed patient to continue antibiotics as prescribed, will refer to hand clinic for further evaluation and management and to return to ER if symptoms worsen. Differential Diagnosis Differential Diagnoses: The differential diagnosis associated with the presentation includes complicated or delayed wound healing, paronychia, abscess, tenosynovitis Admission/Observation Consideration of admission/observation: Escalation of care including admission/observation considered 2nd visit for injury w/ worsening symptoms. considered admit vs obs, however no role for IV abx at this time External Record Review External record reviewed: Outpatient record Tests considered The following testing was considered but not selected: basic lab workup considered to assess for leukocytosis or elevated inflammatory markers however no evidence of sepsis with reassuring exam Prescription Management I considered prescription management with: Pain Medication and Antibiotic Discharge Plan Discharge Clinical Impression: Puncture wound of left thumb Patient Disposition: Home, Self-Care Instructions: Puncture Wound (DC) Additional Instructions: continue to prescribed antibiotics follow up with the hand specialist for further evaluation and treatment - call for an appointment on sunday If you develop new or worsening symptoms call 911 or come back to the ER for further evaluation. Prescriptions: No Action desogestrel-ethinyl estradiol [Apri] 0.15-0.03 mg tablet 1 tab PO DAILY Qty: 84 1RF cephalexin 500 mg capsule 500 mg PO Q6H 7 Days Qty: 28 0RF valacyclovir [Valtrex] 1 gram tablet 1,000 mg PO BID 10 Days Qty: 20 0RF acyclovir [Zovirax] 5 % ointment 1 appl topical 6XD PRN (Reason: prn) 7 Days Qty: 30 2RF Referrals: Geraldine Mcghee MD [Physician] - (puncture wound left thumb w/ skin flap) Interventions: ED Discharge Assessment Last Done: 08/18/23 15:31 Discharge Date/Time: 08/18/23 15:32 Print Language: Estonian
[2023-08-18 15:18] VITALS: BP 146/93; PULSE 74; RESP 18; TEMP 36.8; O2SAT 100; BMI 45.3
[2023-08-18 15:31] VITALS: BP 146/93; PULSE 74; RESP 18; TEMP 36.8; O2SAT 100
== END 2023-08-18 15:32 | disposition home or self-care (01) ==
PROVIDERS: Emergency Provider Student in an Organized Health Care Education/Training Program
DX: S61.032A Puncture wound without foreign body of left thumb without damage to nail, initial encounter (principal); W26.9XXA Contact with unspecified sharp object(s), initial encounter; Y93.9 Activity, unspecified; Y92.9 Unspecified place or not applicable; Y99.8 Other external cause status
CPT/HCPCS: 99282

== ENCOUNTER 2023-08-21 14:08 | Outpatient (AMB) | payer OTHER, SELFPAY ==
[2023-08-21 14:14] VITALS: BMI 45.3
--- NOTE | 2023-08-21 14:14 | A.OFFVIS_ITS ---
Intake Vital Signs 08/21/23 14:14 Height 5 ft 1 in Weight 240 lb BMI 45.3 Intake Visit Reasons: N/P left thumb puncture wound 08/13/23 Intake Note: Meenakshi 33 year old right hand dominant female presents today for a new patient evaluation for her left thumb puncture wound from 08/13/23. States on 08/13/23, she was cleaning her oven when the hinges of the oven door snapped and caught her left thumb. Patient states that the hinge went through her left thumb and required the fire department to come release her. Seen in ED same day where laceration was intact together with glue and she was started on keflex. She later returned on 08/18/23 due to draining in her wound. Currently states she has very little pain and is doing better. Allergies walnut Allergy (Severe, Verified 08/21/23 14:18) ANAPHYLAXIS HPI N/P left thumb puncture wound 08/13/23 HPI Details Meenakshi is a 33 year old right hand dominant woman who presents for her left thumb puncture wound. She reports cleaning her oven on 08/13/23 when the hinge snapped and punctured her thumb. She says the fire department had to be called to release her. She was seen in the ED on 08/13/23 where her wound was cleaned and glued shut, and she was placed on Keflex. She was seen again in the ED on 08/18/23 with complaints of increased swelling & drainage from her injury. She is seen today saying she is feeling better and she has only mild thumb pain that has improved considerably since last week.. She continues to take her Keflex as instructed. 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 Sexual orientation: Straight/Heterosexual Gender identity: Female Female Reproductive History Menstrual Age of Menarche: 13 Review of Systems Const All systems reviewed & are unremarkable except as noted in HPI and below Physical Exam Vital Signs: BMI result Body Mass Index 45.3 Const General: cooperative, healthy appearing and no acute distress Orientation/consciousness: patient oriented x3 HEENT Head: Yes normocephalic and Yes atraumatic Eyes EOM: EOMs intact bilaterally Resp Effort & Inspection: normal respiratory effort and able to speak in complete sentences Cardio Jugular venous distension: no JVD Skin General skin exam: turgor normal Rashes: no rashes Neuro General: patient oriented x3 Extrem Other: Evaluation of Left Upper Extremity: The patient is alert, oriented, and in no acute distress Neuro: Some decreased sensation in gonzalo he radial digital nerve and ulnar digital nerve distribution of the thumb Normal sensation to the tips of all other digits Vascular: Cap refill brisk ROM: She can make a fist and extend all her digits She ca actively flex & extend at the thumb IP joint Skin: Laceration over the ulnar aspect of distal phalanx & pad of thumb General: Resolving swelling & ecchymosis. No drainage Wound C/D/I No tenderness over basal joint or MCP joint Radiographs: 3 views of the left hand, with attention to the thumb, from 08/13/23 were reviewed by me today in clinic. They show a small fracture off the ulnar base of the thumb distal phalanx. Psych Appearance: grossly normal Affect: normal affect Attitude: cooperative Office Procedures Fracture Care Details: Fracture care [id number] Fracture Billing Code: Fracture Billing Code Assessment & Plan Assessment & Plan (1) Open fracture of distal phalanx of left thumb: Code(s): S62.522B - Displaced fracture of distal phalanx of left thumb, initial encounter for open fracture (2) Puncture wound of left thumb: Code(s): S61.032A - Puncture wound without foreign body of left thumb without damage to nail, initial encounter Qualifiers: Encounter type: subsequent encounter Qualified Code(s): S61.032D - Puncture wound without foreign body of left thumb without damage to nail, subsequent encounter Plan Assessment & Plan: 1. Left thumb open distal phalanx fracture, at the ulnar base 2. Left thumb puncture wound, DOI: 08/13/23, from part of the oven door I educated her about this condition This will be managed non-operatively The wound was glued shut in the ED on 08/13/23, she was seen on 08/18/23 with some purulence seen underneath the glue. The glue was removed and she was placed on Keflex. She has had good improvement in pain and swelling in the last few days. I explained the signs and symptoms of infection, if the patient develops any new or worsening erythema, drainage, pain, or warmth they should contact the clinic or attend the ED. She will continue to take her Abx as instructed, and I extended her course of PO Keflex for another 7-days, now taken t.i.d I discussed activity modification, she is to lift nothing heavier than a cellphone for at leats the next 2 weeks She will follow up in 1 week for a wound check. We should get some follow-up x- rays about 4 weeks after that appointment to assure that she had no trouble with bone infection. Scribed for Geraldine Mcghee MD by Wilian Garcia, medical chief technician, on 08/21/23 at 2:40 PM, EST. Medications: New cephalexin 500 mg PO TID 20 caps 0RF Coding Level of Care Code New Pt Level 3 (96389) Diagnoses Open fracture of distal phalanx of left thumb S62.522B Puncture wound of left thumb S61.032D Encounter type: subsequent encounter CPT Codes Fracture Care - Fracture Billing Code: Fracture Billing Code ([id number])
== END 2023-08-21 14:56 | disposition home or self-care (01) ==
PROVIDERS: Visit Provider Orthopaedic Surgery
DX: S62.522B Displaced fracture of distal phalanx of left thumb, initial encounter for open fracture (principal); S61.032D Puncture wound without foreign body of left thumb without damage to nail, subsequent encounter
CPT/HCPCS: 99203

== ENCOUNTER → 2023-08-21 14:08 | Outpatient (BNVA) | payer OTHER, SELFPAY | PROVIDERS: Visit Provider Orthopaedic Surgery | DX: S61.032A Puncture wound without foreign body of left thumb without damage to nail, initial encounter (principal); S62.522A Displaced fracture of distal phalanx of left thumb, initial encounter for closed fracture; W20.8XXA Other cause of strike by thrown, projected or falling object, initial encounter; Y93.G1 Activity, food preparation and clean up; Y92.000 Kitchen of unspecified non-institutional (private) residence as the place of occurrence of the external cause; Y99.9 Unspecified external cause status | CPT/HCPCS: 99202 ==

== ENCOUNTER 2023-10-10 09:44 | Outpatient (AMB) | payer OTHER, SELFPAY ==
--- NOTE | 2023-10-10 10:06 | A.OFFVIS_ITS ---
Vital Signs 10/10/23 10:09 Height 5 ft 1 in Weight 240 lb BMI 45.3 Intake Visit Reasons: OV- left thumb puncture wound 08/13/23 Intake Note: Meenakshi is a 33 year old female presents today for a wound check visit for her left thumb puncture wound from 08/13/23. States she is doing better. She expresses that she is still having some discomfort when gripping items. Patient is still that her numbness is getting better. Allergies walnut Allergy (Severe, Verified 10/10/23 10:08) ANAPHYLAXIS HPI HPI OV- left thumb puncture wound 08/13/23: Details: Meenakshi is a 33 year old right hand dominant woman who returns to discuss her left thumb open distal phalanx fx & puncture wound, from an oven door hinge, DOI: 08/13/23. She is seen today saying she is feeling better and has completed her course of Abx. She says she still has some discomfort with gripping activities. She says she still has numbness to her thumb, that is slowly improving. She still has some numbness primarily to the back of her thumb. 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 She still has some numbness that is more over the dorsal and ulnar aspect of the thumb distal to the IP joint and extending to the ulnar paronychial area All wounds are well healed with no erythema or drainage or evidence of infection. She has full active flexion and extension of the thumb including at the IP joint. She may have a touch more laxity of the ulnar collateral ligament on the left compared to the right but it is really only slightly different. No pain with testing. No tenderness over basal joint or MCP joint Radiographs: 3 views of the left hand, with attention to the thumb, were taken & viewed by me today in clinic. They show a small fracture off the ulnar base of the thumb distal phalanx, with satisfactory fracture alignment & good evidence of interval bony healing. No evidence of osteomyelitis. Assessment & Plan Assessment & Plan (1) Open fracture of distal phalanx of left thumb: Code(s): S62.522B - Displaced fracture of distal phalanx of left thumb, initial encounter for open fracture Category: Medical (2) Puncture wound of left thumb: Code(s): S61.032A - Puncture wound without foreign body of left thumb without damage to nail, initial encounter Category: Medical Qualifiers: Encounter type: subsequent encounter Qualified Code(s): S61.032D - Puncture wound without foreign body of left thumb without damage to nail, subsequent encounter Plan Assessment & Plan: 1. Left thumb open distal phalanx fracture, at the ulnar base 2. Left thumb puncture wound, DOI: 08/13/23, from part of the oven door I educated her about this condition She appears to be doing very well. She has no longer using her splint. She may resume all normal activities at this time. Follow up p.r.n. Scribed for Geraldine Mcghee MD by Wilian Garcia medical claims specialist, on 10/10/23 at 10:30 AM, EST. Orders: Orders XR hand LT min 3V Today M79.642 - Pain in left hand Coding Level of Care Code Global (88596) Diagnoses Open fracture of distal phalanx of left thumb S62.522B Puncture wound of left thumb S61.032D Encounter type: subsequent encounter
[2023-10-10 10:09] VITALS: BMI 45.3
== END 2023-10-10 10:37 | disposition home or self-care (01) ==
PROVIDERS: Visit Provider Orthopaedic Surgery
DX: S62.522B Displaced fracture of distal phalanx of left thumb, initial encounter for open fracture (principal)
CPT/HCPCS: 99213

== ENCOUNTER 2023-10-10 12:31 | Outpatient (REF) | payer OTHER, SELFPAY ==
--- NOTE | ~2023-10-10 | XR_ITS ---
EXAMINATION: XR HAND, LEFT CLINICAL INFORMATION: Pain in left hand, attention thumb. COMPARISON: None available. TECHNIQUE: PA, lateral, and oblique views of the left thumb. FINDINGS: The bone mineralization is normal. Ulnar minus variance. Mild degenerative changes in the 1st carpometacarpal joint. Mild narrowing of the 1st metacarpophalangeal joint. Faint calcific/ossific densities in the soft tissues adjacent to the IP joint of the thumb possibly related to chronic/degenerative process versus tiny avulsion fracture fragments. Foreign body could also be considered in the appropriate clinical setting. XR/XR hand LT min 3V IMPRESSION: 1. Faint calcific/ossific densities in the soft tissues adjacent to the IP joint of the thumb possibly related to chronic/degenerative process versus tiny avulsion fracture fragments. Foreign body could also be considered in the appropriate clinical setting. 2. Mild degenerative changes in the 1st carpometacarpal joint.
== END 2023-10-10 12:32 | disposition home or self-care (01) ==
LOC: HO.HOSX 12:31
DX: M79.642 Pain in left hand (principal); S62.522D Displaced fracture of distal phalanx of left thumb, subsequent encounter for fracture with routine healing; S61.032D Puncture wound without foreign body of left thumb without damage to nail, subsequent encounter; X58.XXXD Exposure to other specified factors, subsequent encounter
CPT/HCPCS: 73130; 99212

== ENCOUNTER 2023-10-26 09:01 | Outpatient (REF) | payer OTHER, SELFPAY ==
--- NOTE | ~2023-10-26 | XR_ITS ---
EXAMINATION: XR ANKLE, LEFT CLINICAL INFORMATION: Pain in the ankle COMPARISON: X-rays of the left ankle 01/17/2018 TECHNIQUE: AP, lateral, and mortise views of the left ankle. FINDINGS: Osseous protuberance off the dorsal aspect of the navicular indicative of a healed avulsion fracture. Remaining bones joints soft tissues are unremarkable.. XR/XR ankle LT min 3V IMPRESSION: Healed avulsion fracture of the dorsal navicular.
== END 2023-10-26 09:02 | disposition home or self-care (01) ==
LOC: HO.HOSX 09:01
PROVIDERS: Visit Provider Physician Assistant
DX: M25.572 Pain in left ankle and joints of left foot (principal); M25.872 Other specified joint disorders, left ankle and foot; Q68.8 Other specified congenital musculoskeletal deformities
CPT/HCPCS: 73610; 99202

== ENCOUNTER 2023-10-26 12:28 | Outpatient (AMB) | payer OTHER, SELFPAY ==
--- NOTE | 2023-10-26 12:44 | A.OFFVIS_ITS ---
Vital Signs 10/26/23 12:53 Height 5 ft 1 in Weight 240 lb BMI 45.3 Intake Visit Reasons: newprob- Lt ankle injury 2018 Intake Note: Meenakshi a 33 year old female who presents today for an evaluation of left ankle. Patient reports an ankle injury from 2018 that never got better, states that she was only seen at [facility], no other tx. Currently her pain is located at her achi lles and the lateral aspect of ankle. Her pain increases with walking down an incline and her ankle will constantly crack with movement. Denies numbness or tingling. Allergies walnut Allergy (Severe, Verified 10/26/23 12:53) ANAPHYLAXIS HPI HPI newprob- Lt ankle injury 2018: Details: 33-year-old female who presents in the office today for an evaluation of left ankle pain. When scheduling the appointment, the patient reported injuring his left ankle in 2018 and having pain since. While in the office today she confirms injuring her ankle in 2018 and claims it has never healed. The patient reports she was seen at the [facility] ED. She claims her pain is located around the Achilles and on the lateral aspect of the left ankle. She states her pain increases when descending an incline. She also reports constant cracking with movement. She denies numbness or tingling. 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 Sexual orientation: Straight/Heterosexual Gender identity: Female Female Reproductive History Menstrual Age of Menarche: 13 Review of Systems Const All systems reviewed & are unremarkable except as noted in HPI and below Physical Exam Vital Signs: BMI result Body Mass Index 45.3 Const General: cooperative and no acute distress Orientation/consciousness: patient oriented x3 Resp Effort & Inspection: normal respiratory effort and able to speak in complete sentences Cardio Rate: regular rate Peripheral pulses: Peripheral pulses 2+ throughout GI Palpation (GI): Soft to palpation Skin General skin exam: no rashes or lesions noted Lesions: no lesions Rashes: no rashes Neuro General: patient oriented x3 Extrem Other: Left ankle: Normal to inspection. No ecchymosis, erythema, or edema. Slight limitation with performing full plantarflexion compared to the contralateral side. Able to perform dorsiflexion, pronation and supination. Negative anterior drawer. Sensation intact. Pedal Pulse intact. Assessment & Plan Assessment & Plan (1) Impingement syndrome of left ankle: Code(s): M25.872 - Other specified joint disorders, left ankle and foot (2) Os trigonum: Comment: Left ankle Code(s): Q68.8 - Other specified congenital musculoskeletal deformities Category: Medical Plan Ms. Saldivar is a 33-year-old female who presents in the office today for an evaluation of left ankle pain. When scheduling the appointment, the patient reported injuring his left ankle in 2018 and having pain since. While in the office today she confirms injuring her ankle in 2018 and claims it has never healed. The patient reports she was seen at the [facility]. She claims her pain is located around the Achilles and on the lateral aspect of the left ankle. She states her pain increases when descending an incline. She also reports constant cracking with movement. She denies numbness or tingling. The patient reports the majority of her pain is located on the posterior aspect of the left ankle. She has limitations with plantarflexion on today?s exam. X- rays today showed evidence of impingement at the os trigonum on the posterior aspect of the left ankle, which I believe is causing impingement and restriction in ROM. A referral to [facility] was made for further treatment. Follow-up will be PRN, or soonr if needed. X-rays of the left ankle which were obtained while in the office today and were reviewed by me, Kathi Mack PA-C, revealed evidence of impingement at the os trigonum on the posterior aspect of the left ankle. Orders: Orders XR ankle LT min 3V Today M25.579 - Pain in unspecified ankle and joints of unspecified foot Referrals Orthopedics Referral M25.872 - Other specified joint disorders, left ankle and foot Patient Instructions: Scribed by Yumiko Kowalski, medical clerical assistant, for Kathi Mack PA-C on 10/26/2023 at 12:36 pm, EST. Coding Level of Care Code New Pt Level 3 (53165) Diagnoses Impingement syndrome of left ankle M25.872 Os trigonum Q68.8
[2023-10-26 12:53] VITALS: BMI 45.3
== END 2023-10-26 13:02 | disposition home or self-care (01) ==
PROVIDERS: Visit Provider Physician Assistant
DX: M25.872 Other specified joint disorders, left ankle and foot (principal); Q68.8 Other specified congenital musculoskeletal deformities
CPT/HCPCS: 99203

== ENCOUNTER → 2023-12-18 12:01 | Outpatient (BNVA) | payer SELFPAY | DX: Z02.0 Encounter for examination for admission to educational institution (principal) ==

== ENCOUNTER → 2024-01-07 13:14 | Outpatient (BNVA) | payer SELFPAY | DX: Z02.83 Encounter for blood-alcohol and blood-drug test (principal) ==

== ENCOUNTER 2024-10-22 15:47 | Outpatient (REF) | payer OTHER, SELFPAY ==
[2024-10-23 13:46] LABS: Bacterial Vaginosis PCR NEGATIVE (Negative); Candida Group PCR NOT DETECTED (Not Detect); Candida glab krusei PCR NOT DETECTED (Not Detect); Trichomonas vaginalis PCR NOT DETECTED (Not Detect)
[2024-10-23 14:19] LABS: CT PCR NOT DETECTED (Not Detect.); NG PCR NOT DETECTED (Not Detect.)
== END 2024-10-22 15:48 | disposition home or self-care (01) ==
LOC: HO.LAB 15:47
PROVIDERS: Visit Provider Advanced Practice Midwife
DX: Z01.419 Encounter for gynecological examination (general) (routine) without abnormal findings (principal); Z20.2 Contact with and (suspected) exposure to infections with a predominantly sexual mode of transmission
CPT/HCPCS: 81515; 87491; 87591; 99395; 99459

== ENCOUNTER 2024-10-22 15:47 | Outpatient (AMB) | payer OTHER, SELFPAY ==
--- NOTE | 2024-10-22 15:48 | A.OFFVIS_ITS ---
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 Doing well with no pulverizer operator concerns. Regular monthly menses. Not on control has no desire to start due to the side effects. Avoiding by being cautious She denies vaginal itching or irritation. STI screening offered; she accepts. She tries to eat healthy and stays active with exercise. 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 Denies family history of breast, ovarian or colon cancer. Last pap smear 2023, negative. 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 Sexual orientation: Straight/Heterosexual Gender identity: Female Female Reproductive History Menstrual Age of Menarche: 13 Date of last menstrual period: 10/12/24 control method: none Total pregnancies: 3 Full term: 1 Number of Living Children: 1 Ab spontaneous: 1 Ectopics: 1 Date of last pap smear: 07/18/23 (neg pap and hpv) Review of Systems Const All systems reviewed & are unremarkable except as noted in HPI and below Reports as per HPI Eyes Reports no additional complaints ENT Reports no additional complaints Card Reports no additional complaints Resp Reports no additional complaints GI Reports as per HPI and Reports no additional complaints Reports as per HPI Musc Reports no additional complaints Skin/Breast Reports as per HPI Neuro Reports no additional complaints Psych Reports no additional complaints Endo Reports no additional complaints Spencer/Lymph Reports no additional complaints Aller/Immun Reports no additional complaints Physical Exam Vital Signs: Last Vital Signs BP 106/66 10/22/24 15:49 BMI result Body Mass Index 55.7 Const General: cooperative, healthy appearing, no acute distress, well developed and alert Orientation/consciousness: patient oriented x3 HEENT Head: Yes normal to inspection Eyes General: appearance normal, both eyes and all related structures Neck Neck: Yes normal visual inspection Thyroid: Thyroid normal Chest Chest palpation & inspection: normal inspection of the chest and other (no puckering, dimpling, peau de orange, retraction, discharge, masses) Breast/axilla inspection: normal inspection of the breasts Breast/axilla palpation: normal palpation of the breasts Resp Effort & Inspection: normal respiratory effort GI Inspection: Yes normal to inspection Palpation (GI): Soft to palpation Rectal Exam - Female: deferred General: Yes bladder normal to palpation External Female Exam: normal external appearance and normal appearance of the urethra Speculum Exam - Vagina: normal appearance of the vagina, normal palpation and normal vaginal discharge Speculum Exam - Cervix: normal appearance of the cervix and normal palpation Bimanual exam- vagina & uterus: normal bimanual exam, normal palpation, uterine size normal, bladder normal to palpation, normal palpation and non-tender Bimanual Exam- Adnexa, other: no masses Skin General skin exam: no rashes or lesions noted Rashes: no rashes Neuro General: patient oriented x3 Cognition (Neuro): normal cognition Extrem General: Yes normal to inspection Psych Attitude: cooperative Thought process: Normal thought process present Assessment & Plan Assessment & Plan (1) Encounter for annual routine gynecological examination: Code(s): Z01.419 - Encounter for gynecological examination (general) (routine) without abnormal findings Category: Medical Plan Discussed: Current recommendations for pap smears per ASCCP guidelines. Breast awareness and periodic breast exams. GC chlamydia and BV panel obtained. Await results for final plan of care. Maintain a healthy lifestyle including a well balanced diet and routine exercise. Patient verbalizes understanding and agrees to the plan of care. She was given opportunity to ask questions and all questions were answered to the best of my ability. RTO in one year for annual pulverizer operator examination. This note is constructed using voice recognition software. While every effort has been made to ensure accuracy, recruitment director errors may have been included. Orders: Orders Bacterial Vaginosis Panel Today Z20.2 - Contact with and (suspected) exposure to infections with a predominantly sexual mode of transmission CT NG by PCR Today Z20.2 - Contact with and (suspected) exposure to infections with a predominantly sexual mode of transmission Coding Level of Care Code Est Pt Prev Care 18-39y(34530) Diagnoses Encounter for annual routine gynecological examination Z01.419
[2024-10-22 15:49] VITALS: BP 106/66; BMI 55.7
--- OUTSIDE RECORDS SUMMARY | 2024-10-22 18:06 | XMS_ITS | Clinical Summary ---
Author Organization [facility] Address [address] [place] [id number] Phone Care Team Providers Care Service Cleaner Name Role Phone Arlene Mariano MD Primary Care Provider [phone] Allergies No known active allergies Medications penicillin v potassium 500 MG tablet TAKE 1 TABLET BY MOUTH EVERY 6 HOURS X 10 DAYS 0 03/16/2018 Active Social History Tobacco Use Types Packs/Day Years Used Date Smoking Tobacco: Former Smokeless Tobacco: Never Comments Unknown Sex and Gender Information Value Date Recorded Sex Assigned at Not on file Legal Sex Female 11:27 AM EST Gender Identity Not on file Sexual Orientation Not on file Last Filed Vital Signs Vital Sign Reading Time Taken Comments Blood Pressure 140/90 03/18/2018 12:23 PM EST Pulse - - Temperature 37.4 ??C (99.4 ??F) 03/18/2018 12:[address] Respiratory Rate - - Oxygen Saturation - - Inhaled Oxygen Concentration - - Weight 85.8 kg (189 lb 1.6 oz) 03/18/2018 12:23 PM EST Height 156.8 cm (5' 1.75 ) 03/18/2018 12:[address] Body Mass Index 34.87 03/18/2018 12:23 PM EST Plan of Treatment Health Maintenance Due Date Last Done Comments MMR Vaccines (1 of 1 - Standard series) 1993 Varicella Vaccines (1 of 2 - 13+ 2-dose series) 2005 Hepatitis B Vaccines (1 of 3 - 19+ 3-dose series) 2011 Influenza Vaccines (#1) 2023 COVID-19 Vaccine (3 - 2023-2 5 season) 2024 07/07/2020, 06/09/2020 DTaP,Tdap,and Td Vaccines (2 - Td or Tdap) 03/25/2024 03/25/2014 HIB Vaccines Aged Out No longer eligi ble based on patient's age to complete this topic HPV Vaccines Aged Out No longer eligi ble based on patient's age to complete this topic Hepatitis A Vaccines Aged Out No long er eligible based on patient's age to complete this topic IPV Vaccines Aged Out No longer eligi ble based on patient's age to complete this topic Men B Vaccine Aged Out No longer elig ible based on patient's age to complete this topic Meningococcal Vaccine Aged Out No fox maura eligible based on patient's age to complete this topic Pneumococcal Vaccine Aged Out No long er eligible based on patient's age to complete this topic Insurance THPP OTHER O O Care Teams Service Cleaner Relationship Specialty Start Date End Date Arlene Mariano MD PCP - General Pediatrics 03/18/18
== END 2024-10-23 07:41 | disposition home or self-care (01) ==
LOC: HO.HWS 15:47
PROVIDERS: Visit Provider Advanced Practice Midwife
DX: Z01.419 Encounter for gynecological examination (general) (routine) without abnormal findings (principal)
CPT/HCPCS: 99395; 99459

== ENCOUNTER 2024-10-22 16:10 | Outpatient (REF) | payer OTHER, SELFPAY | END 2024-10-22 16:11 | disposition home or self-care (01) | LOC: HO.LNP 16:10 | PROVIDERS: Visit Provider Advanced Practice Midwife | DX: Z13.89 Encounter for screening for other disorder (principal) ==